=== PATIENT | male | born 1995 | race Two or more races ===

== ENCOUNTER 2021-01-14 22:03 | Emergency (ER) | payer OTHER ==
[~2021-01-14] VITALS: Ht 195.6 cm; Wt 122.0 kg
--- NOTE | 2021-01-14 22:10 | NUR ---
COVID SWAB COMPLETED IN TRIAGE.
[2021-01-14] MEDS ORDERED: SODIUM CHLORIDE 0.9% 1,000ML IVBOLUS ONE (23:00)
[2021-01-14] MEDS ORDERED: DEXAMETHASONE 4 MG/ML, 1ML IVPush ONE (23:00)
[2021-01-14] MEDS ORDERED: PLEASE ENTER ALLERGIES MC SCH (23:00)
[2021-01-14] MEDS ORDERED: SODIUM CHLORIDE FLUSH 10ML SYR IVF ONE (23:00)
[2021-01-14] MEDS ORDERED: ONDANSETRON 2MG/ML, 2ML IVPush ONE (23:00)
[2021-01-14] MEDS ORDERED: DEXAMETHASONE 4 MG/ML, 1ML ONE (23:06)
[2021-01-14] MEDS ORDERED: ONDANSETRON 2MG/ML, 2ML ONE (23:06)
--- NOTE | 2021-01-14 23:13 | NUR ---
PT C/O OF HEADACHE, BODYACHES, N/V/D, STUFFY, FEVER/CHILLS, WEAK, AND LIGHT HEADED ATTACHED TO MONITORS, VSS. NADN AT THIS MOMENT. BED IN LOW, RILS ENGAGED, CALL LIGHT ON LAP.
[2021-01-14] MEDS ORDERED: ACETAMINOPHEN 325 MG TABLET PO ONE (23:30)
[2021-01-14] MEDS ORDERED: ACETAMINOPHEN 325 MG TABLET ONE (23:33)
[2021-01-14 23:51] LABS: BASOPHILS % (AUTO) 1 % (0-1); EOSINOPHILS % (AUTO) 0 % (1-7); LYMPHOCYTES % (AUTO) 15 % (22-44); MEAN CORPUSCULAR HEMOGLOBIN 30.6 pg (27.5-34.5); MEAN CORPUSCULAR HGB CONC 34.3 g/dL (33.2-36.2); MEAN PLATELET VOLUME 10.1 fL (7.4-10.4); MONOCYTES % (AUTO) 11 % (2-9); NEUTROPHILS % (AUTO) 73 % (42-75); PLATELET COUNT 173 x10^3/uL (130-400); RED BLOOD COUNT 5.32 x10^6/uL (4.38-5.82); RED CELL DISTRIBUTION WIDTH 12.9 % (9.4-14.8)
[2021-01-14 23:58] LABS: ALANINE AMINOTRANSFERASE 47 U/L (12-78); ALBUMIN 3.7 g/dL (3.4-5.0); ANION GAP 7 mmol/L (5-15); CALCIUM 8.6 mg/dL (8.5-10.1); CHLORIDE 108 mmol/L (98-107); CREATININE 1.04 mg/dL (0.7-1.3)
[2021-01-15 00:02] LABS: ALKALINE PHOSPHATASE 64 U/L (45-117); BILIRUBIN,TOTAL 0.4 mg/dL (0.2-1.0); TOTAL PROTEIN 7.4 g/dL (6.4-8.2); TROPONIN I < 0.015 ng/mL (0.000-0.045)
[2021-01-15 00:37] VITALS: BP 115/73
--- NOTE | 2021-01-15 01:14 | NUR ---
Patient/Caregiver given discharge instructions and they have confirmed that they understand the instructions. Patient ambulatory with steady gait. NAD, all questions answered appropriately, denies additional needs at this time. No personal belongings left in room after discharge.
== END 2021-01-15 01:15 | disposition home or self-care (01) ==
LOC: ED 22:15
DX: U07.1 COVID-19 (principal); J06.9 Acute upper respiratory infection, unspecified; R06.00 Dyspnea, unspecified; R00.0 Tachycardia, unspecified
CPT/HCPCS: 36415; 71045; 80053; 83880; 84484; 85025; 85379; 96361; 96374; 96375; 99284; J1100; J2405; J7030; U0003; U0005